=== PATIENT | male | born 1995 | race African-American/Black ===

== ENCOUNTER 2021-07-24 13:34 | Emergency (ER) | payer MEDICAID, OTHER ==
[~2021-07-24] VITALS: Ht 157.5 cm; Wt 75.0 kg
[~2021-07-24 13:34] MED LIST: FAMO20TA8 PO; NAPR-679 PO
[2021-07-24] MEDS ORDERED: BACITRACIN ZINC OINT UDPKT TOP ONE (14:30)
[2021-07-24] MEDS ORDERED: TETANUS, DIPHTHERIA, PERTUSSIS VAC/PF 0.5ML (>10YR OLD) IM ONE (14:30)
[2021-07-24] MEDS ORDERED: BO1 TP (14:32)
[2021-07-24 15:08] VITALS: BP 138/85
== END 2021-07-24 15:09 | disposition home or self-care (01) ==
LOC: ER 13:34
DX: S40.811A Abrasion of right upper arm, initial encounter (principal); W22.8XXA Striking against or struck by other objects, initial encounter; Y93.89 Activity, other specified; Y92.89 Other specified places as the place of occurrence of the external cause; Y99.8 Other external cause status; F12.10 Cannabis abuse, uncomplicated; Z79.899 Other long term (current) drug therapy
CPT/HCPCS: 90471; 90715; 99283; A4217

== ENCOUNTER 2022-01-29 12:38 | Emergency (ER) | payer MEDICAID ==
[~2022-01-29] VITALS: Ht 160 cm; Wt 83.4 kg
[~2022-01-29 12:38] MED LIST changes: +BO1 TP
[2022-01-29] MEDS ORDERED: KETOROLAC 60MG/2ML VIAL IM STA (12:58)
[2022-01-29] MEDS ORDERED: LIDOCAINE HCL 1% 20ML VIAL (Pyxis) INJ INFIL ONE (13:00)
[2022-01-29] MEDS ORDERED: CEFTRIAXONE SODIUM 1 G/VIAL IM ONE (13:00)
[2022-01-29] MEDS ORDERED: AMOX-424 PO (13:58)
[2022-01-29] MEDS ORDERED: SULF1TAB48 PO (13:58)
[2022-01-29] MEDS ORDERED: IBUP-2029 PO (13:58)
[2022-01-29 14:16] VITALS: BP 128/86
== END 2022-01-29 14:37 | disposition home or self-care (01) ==
LOC: MERGE 14:35 → ER 14:35
DX: L02.31 Cutaneous abscess of buttock (principal)
CPT/HCPCS: 96372; 99284; J0696; J1885; J3490

== ENCOUNTER 2022-01-31 10:14 | Emergency (ER) | payer MEDICAID, OTHER ==
[~2022-01-31] VITALS: Ht 170.2 cm; Wt 79.0 kg
[~2022-01-31 10:14] MED LIST changes: +AMOX-424 PO; +IBUP-2029 PO; +SULF1TAB48 PO
[2022-01-31 10:48] VITALS: BP 118/69
== END 2022-01-31 11:14 | disposition home or self-care (01) ==
LOC: ER 10:14
DX: L02.31 Cutaneous abscess of buttock (principal); Z48.00 Encounter for change or removal of nonsurgical wound dressing
CPT/HCPCS: 99281

== ENCOUNTER 2024-11-12 09:55 | Emergency (ER) | payer OTHER ==
[~2024-11-12] VITALS: Ht 157.5 cm; Wt 72.0 kg
[2024-11-12 10:06] VITALS: O2SAT 100
[2024-11-12] MEDS ORDERED: IBUP-2029 MT (10:58)
[2024-11-12] MEDS: KETOROLAC 30MG/ML VIAL IM ONE (11:03)
[2024-11-12 11:04] VITALS: BP 117/65; PULSE 80; RESP 16; TEMP 36.9; O2SAT 100
[2024-11-12 11:58] LABS: CLARITY URINE CLEAR (CLEAR); COLOR URINE DARK YELLOW (YELLOW); GLUCOSE URINE NEGATIVE (NEGATIVE); KETONES URINE 1+ (NEGATIVE); LEUKOCYTE ESTERASE URINE TRACE (NEGATIVE); NITRITE URINE NEGATIVE (NEGATIVE); OCCULT BLOOD URINE NEGATIVE (NEGATIVE); PH URINE 5.5 (4.5-8.0); PROTEIN URINE NEGATIVE (NEGATIVE); SPECIFIC GRAVITY URINE 1.029 (1.005-1.030)
[2024-11-12 12:20] LABS: BACTERIA URINE FEW; RBC URINE NONE SEEN /hpf (0-2); SQUAMOUS EPITHELIAL CELL URINE RARE /lpf (RARE/1+); YEAST URINE NONE SEEN
== END 2024-11-12 11:15 | disposition home or self-care (01) ==
LOC: ER 09:55
DX: S89.91XA Unspecified injury of right lower leg, initial encounter (principal); F12.10 Cannabis abuse, uncomplicated; Z79.899 Other long term (current) drug therapy; V87.8XXA Person injured in other specified noncollision transport accidents involving motor vehicle (traffic), initial encounter; Y93.89 Activity, other specified; Y92.89 Other specified places as the place of occurrence of the external cause; Y99.8 Other external cause status
CPT/HCPCS: 99284; 81003; 73562; 96372; J1885